=== PATIENT | male | born 1955 | race Caucasian/White ===

== ENCOUNTER 2018-09-25 10:47 | Emergency (ER) | payer MEDICARE ==
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
[2018-09-25 11:40] LABS: ABSOLUTE EOSINOPHILS # (AUTO) 0.1 10^3/uL (0.0-0.6); ABSOLUTE MONOCYTES (AUTO) 0.6 10^3/uL (0.1-1.4); ABSOLUTE NEUT (AUTO) 6.5 10^3/uL (1.7-8.2); BASOPHILS % (AUTO) 0.4 % (0-2); EOSINOPHILS % (AUTO) 0.7 % (0-6); HEMATOCRIT 49.8 % (37.9-51.0); HEMOGLOBIN 17.4 g/dL (13.5-17.0); LYMPHOCYTES % (AUTO) 21.9 % (13-45); MEAN CORPUSCULAR HEMOGLOBIN 31.7 pg (27.0-33.4); MEAN CORPUSCULAR HGB CONC 34.9 g/dL (32.0-36.0); MEAN CORPUSCULAR VOLUME 91 fl (80-97); MONOCYTES % (AUTO) 6.7 % (3-13); PLATELET COUNT 216 10^3/uL (150-450); RED BLOOD COUNT 5.49 10^6/uL (4.35-5.55); RED CELL DISTRIBUTION WIDTH 14.7 % (11.5-14.0); SEGMENTED NEUTROPHILS % (AUTO) 70.3 % (42-78); TOTAL CELLS COUNTED % (AUTO) 100 %; WHITE BLOOD COUNT 9.2 10^3/uL (4.0-10.5)
[2018-09-25 11:50] LABS: APPEARANCE,URINE CLEAR; BILIRUBIN,URINE NEGATIVE (NEGATIVE); COLOR,URINE YELLOW; GLUCOSE, URINE NEGATIVE (NEGATIVE); KETONES,URINE TRACE mg/dL (NEGATIVE); LEUKOCYTE ESTERASE,URINE NEGATIVE (NEGATIVE); NITRITE,URINE NEGATIVE (NEGATIVE); PROTEIN,URINE NEGATIVE (NEGATIVE); URINE SPECIFIC GRAVITY 1.008; UROBILINOGEN,URINE NEGATIVE mg/dL (<2.0)
[2018-09-25 12:02] LABS: URINE AMPHETAMINES SCREEN NEGATIVE; URINE BARBITURATES SCREEN NEGATIVE; URINE BENZODIAZEPINES SCREEN NEGATIVE; URINE COCAINE SCREEN NEGATIVE; URINE MARIJUANA (THC) SCREEN NEGATIVE; URINE METHADONE SCREEN NEGATIVE; URINE PHENCYCLIDINE SCREEN NEGATIVE
[2018-09-25 12:05] LABS: ALANINE AMINOTRANSFERASE 61 U/L (21-72); ALKALINE PHOSPHATASE 107 U/L (38-126); ANION GAP 11 (5-19); ASPARTATE AMINO TRANSFERASE 63 U/L (17-59); BILIRUBIN,DIRECT 0.4 mg/dL (0.0-0.4); BILIRUBIN,TOTAL 0.9 mg/dL (0.2-1.3); BLOOD UREA NITROGEN 10 mg/dL (7-20); CALCIUM 9.3 mg/dL (8.4-10.2); CARBON DIOXIDE 28 mmol/L (22-30); CHLORIDE 98 mmol/L (98-107); GLUCOSE 119 mg/dL (75-110); POTASSIUM 4.6 mmol/L (3.6-5.0); SODIUM 137.2 mmol/L (137-145); TOTAL PROTEIN 6.8 g/dL (6.3-8.2)
[2018-09-25 12:09] LABS: ACETAMINOPHEN < 10 ug/mL (10-30); ALCOHOL < 10 mg/dL (NONE DETECTED); SALICYLATE < 1.0 mg/dL (2.0-20.0)
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
[2018-09-25] MEDS ORDERED: BENZTROPINE MESYLATE 1 MG TABLET PO ONE (15:04)
[2018-09-25] MEDS: ASPIRIN 81 MG TABLET, CHEWABLE PO SCH (15:12)
--- NOTE | 2018-09-25 15:49 | EKG REPORT ---
SEVERITY:- ABNORMAL ECG - SINUS RHYTHM LEFT ATRIAL ABNORMALITY NONSPECIFIC INTRAVENTRICULAR CONDUCTION DELAY INFERIOR INFARCT, AGE INDETERMINATE : Confirmed by: Maria Guadalupe Lobo MD 25-Sep-2018 15:48:53
[2018-09-25] MEDS: OLANZAPINE 5 MG TABLET PO SCH (17:52)
[2018-09-25] MEDS: DIVALPROEX SODIUM 500 MG TAB.SR.24H PO SCH (17:52)
[2018-09-25] MEDS: BUSPIRONE HCL 10 MG TABLET PO SCH (17:52)
--- NOTE | 2018-09-25 19:02 | RADIOLOGY REPORT (SQ) ---
EXAM DESCRIPTION: VENOUS UNILATERAL LOWER COMPLETED DATE/TIME: 09/25/2018 6:20 pm REASON FOR STUDY: Swelling and pain right leg, donor site for CABG COMPARISON: None. TECHNIQUE: Dynamic and static colon scale and color images acquired of the right leg venous system. S elected spectral images acquired with additional compression and augmentation maneuvers. The contrala teral common femoral vein and saphenofemoral junction were also imaged. Images stored on PACS. LIMITATIONS: None. FINDINGS: COMMON FEMORAL: Normal phasicity, compression and augmentation. No visualized echogenic ma terial on colon scale. No defects on color images. FEMORAL: Normal compression and augmentation. No visualized echogenic material on colon scale. No defe cts on color images. POPLITEAL: Normal compression, augmentation. No visualized echogenic material on colon scale. No defec ts on color images. CALF VESSELS: Normal compression, augmentation. No visualized echogenic material on colon scale. No de fects on color images. GSV and SSV: The greater saphenous vein is surgically absent status post graft harvest. ANY DEEP VENOUS INSUFFICIENCY: Not evaluated. ANY EVIDENCE OF POPLITEAL CYST: No. OTHER: No other significant finding. CONTRALATERAL COMMON FEMORAL VEIN AND SAPHENOFEMORAL JUNCTION: Normal phasicity, compression and augmentation. No visualized echogenic material on colon scale. No de fects on color images. IMPRESSION: Negative ultrasound examination for deep venous thrombosis in the right lower extremity. TECHNICAL DOCUMENTATION: JOB ID: [id number] [employer]- All Rights Reserved Reading location - IP/workstation name: [email or web address]
--- NOTE | 2018-09-26 09:53 | ER Document Report ---
Doctor's Note Notes: Laboratory 09/25/18 09/25/18 09/25/18 11:26 11:26 11:26 WBC 9.2 RBC 5.49 Hgb 17.4 H Hct 49.8 MCV 91 MCH 31.7 MCHC 34.9 RDW 14.7 H Plt Count 216 Seg Neutrophils % 70.3 Lymphocytes % 21.9 Monocytes % 6.7 Eosinophils % 0.7 Basophils % 0.4 Absolute Neutrophils 6.5 Absolute Lymphocytes 2.0 Absolute Monocytes 0.6 Absolute Eosinophils 0.1 Absolute Basophils 0.0 Sodium 137.2 Potassium 4.6 Chloride 98 Carbon Dioxide 28 Anion Gap 11 BUN 10 Creatinine 1.01 Est GFR ( Amer) > 60 Est GFR (Non-Af Amer) > 60 Glucose 119 H Calcium 9.3 Total Bilirubin 0.9 Direct Bilirubin 0.4 Neonat Total Bilirubin Not Reportable Neonat Direct Bilirubin Not Reportable Neonat Indirect Bili Not Reportable AST 63 H ALT 61 Alkaline Phosphatase 107 Total Protein 6.8 Albumin 4.0 Urine Color YELLOW Urine Appearance CLEAR Urine pH 6.0 Ur Specific [place] 1.008 Urine Protein NEGATIVE Urine Glucose (UA) NEGATIVE Urine Ketones TRACE H Urine Blood NEGATIVE Urine Nitrite NEGATIVE Urine Bilirubin NEGATIVE Urine Urobilinogen NEGATIVE Ur Leukocyte Esterase NEGATIVE Urine WBC (Auto) 2 Urine RBC (Auto) 0 Urine Bacteria (Auto) TRACE Urine Mucus (Auto) RARE Urine Ascorbic Acid NEGATIVE Salicylates < 1.0 L Urine Opiates Screen Urine Methadone Screen Acetaminophen < 10 L Ur Barbiturates Screen Ur Phencyclidine Scrn Ur Amphetamines Screen U Benzodiazepines Scrn Urine Cocaine Screen U Marijuana (THC) Screen Serum Alcohol < 10 09/25/18 11:26 WBC RBC Hgb Hct MCV MCH MCHC RDW Plt Count Seg Neutrophils % Lymphocytes % Monocytes % Eosinophils % Basophils % Absolute Neutrophils Absolute Lymphocytes Absolute Monocytes Absolute Eosinophils Absolute Basophils Sodium Potassium Chloride Carbon Dioxide Anion Gap BUN Creatinine Est GFR ( Amer) Est GFR (Non-Af Amer) Glucose Calcium Total Bilirubin Direct Bilirubin Neonat Total Bilirubin Neonat Direct Bilirubin Neonat Indirect Bili AST ALT Alkaline Phosphatase Total Protein Albumin Urine Color Urine Appearance Urine pH Ur Specific [place] Urine Protein Urine Glucose (UA) Urine Ketones Urine Blood Urine Nitrite Urine Bilirubin Urine Urobilinogen Ur Leukocyte Esterase Urine WBC (Auto) Urine RBC (Auto) Urine Bacteria (Auto) Urine Mucus (Auto) Urine Ascorbic Acid Salicylates Urine Opiates Screen NEGATIVE Urine Methadone Screen NEGATIVE Acetaminophen Ur Barbiturates Screen NEGATIVE Ur Phencyclidine Scrn NEGATIVE Ur Amphetamines Screen NEGATIVE U Benzodiazepines Scrn NEGATIVE Urine Cocaine Screen NEGATIVE U Marijuana (THC) Screen NEGATIVE Serum Alcohol 09/26/18 09:52 62-year-old male brought in and IVC paperwork for aggressive behavior. As the rounding physician this AM, I assessed the patient's labs, vitals, and records. No concerning findings this morning. Patient denies any acute complaints. Patient is cleared for disposition by psychiatry. At this time we are awaiting placement to a psychiatric facility. PHYSICAL EXAMINATION: GENERAL: Well-appearing, well-nourished and in no acute distress. HEAD: Atraumatic, normocephalic. EYES: Pupils equal round extraocular movements intact, conjunctiva are normal. ENT: Nares patent NECK: Normal range of motion LUNGS: No respiratory distress Musculoskeletal: Normal range of motion NEUROLOGICAL: Normal speech, normal gait. PSYCH: Normal mood, normal affect. SKIN: Warm, Dry, normal turgor, no rashes or lesions noted.
[2018-09-26] MEDS: ASPIRIN 81 MG TABLET, CHEWABLE PO SCH (10:44)
[2018-09-26] MEDS: BUSPIRONE HCL 10 MG TABLET PO SCH ×2 (10:44→18:55)
[2018-09-26] MEDS: DIVALPROEX SODIUM 500 MG TAB.SR.24H PO SCH ×2 (10:44→18:55)
[2018-09-26] MEDS: OLANZAPINE 5 MG TABLET PO SCH ×2 (10:44→18:55)
--- NOTE | 2018-09-26 12:46 | PSYCHOLOGICAL NOTE ---
Psych Note - Psych Note Date seen by psych provider: 09/26/18 Time seen by psych provider: 12:00 Psych Note: Reason for Consult: IVC Consent permissions: jaden Palm to be daughter in law, Patient is here under IVC papers due to aggressive behavior and hostile actions. Check in conduct with patient Patient presents irritable and states he has no interest in talking to clinician. 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 Patient appears to be confusing IVC to being under arrest; however, clinician id unable to clarify the situation because he is refusing to allow clinician to talk to him. Patient was noted to have a good evening and had no difficulties. Patient requests his soon-to-be [id number], Arpita, to be contacted to come and sit with him. Clinician contacted [id number] Arpita who reports she will be there as soon as possible. Medication recommendations per [facility]'s contracted Dr. Neno BENITES are as follows Depakote 500 mg twice daily BuSpar 10 mg twice daily Zyprexa 5 mg twice daily Cogentin 1 mg daily 309.81 (F43.10) posttraumatic stress disorder Impression/plan:Patient is recommended to continue under IVC. Patient has labile mood with tearful affect. Patient reports frequent flashbacks; the last one being just last night. He thought he was still on duty in [facility]; this resulted in the patient becoming aggressive with family. He confirms he has never been aggressive before. Medication recommendations have been provided. Patient will be re-evaluated. Dr. Harrison was consulted on the care and management of this patient; attending physician is in agreement with recommendations and disposition.
[2018-09-26] MEDS ORDERED: BENZTROPINE MESYLATE INJ 2 MG/2 ML AMPULE IM SCH (15:30)
[2018-09-27] MEDS ORDERED: ACETAMINOPHEN 325 MG TABLET PO ONE (02:47)
--- NOTE | 2018-09-27 07:55 | ER Document Report ---
Doctor's Note Notes: 09/27/18 07:55 Patient has been accepted at [facility]. Law enforcement will be here shortly to transport him. At this time he is medically stable for transport.
[2018-09-27 08:58] VITALS: BP 166/79
--- NOTE | 2018-09-27 11:39 | PSYCHOLOGICAL NOTE ---
Psych Note - Psych Note Date seen by psych provider: 09/27/18 Time seen by psych provider: 08:00 Psych Note: Reason for Consult: IVC Consent permissions: jaden Palm to be daughter in law, Patient is here under IVC papers due to aggressive behavior and hostile actions. Check in conduct with patient Patient was accepted to [facility] and transportation was set up for this morning. Clinician explained placement has been found to [facility] to patient. He reports his understanding and received [facility] brochures. Patient states he has no further concerns. Clinician notes patient never makes eye contact. Medication recommendations per [facility]'s contracted Dr. Neno BENITES are as follows Depakote 500 mg twice daily BuSpar 10 mg twice daily Zyprexa 5 mg twice daily Cogentin 1 mg daily 309.81 (F43.10) posttraumatic stress disorder Impression/plan:Patient is recommended to continue under IVC. Patient was accepted to [facility]; transportation was set up for this morning. Patient reports no further concerns at this time. Dr. Harrison was consulted on the care and management of this patient; attending physician is in agreement with recommendations and disposition.
== END 2018-09-27 08:58 ==
LOC: ER 10:47
DX: F99 Mental disorder, not otherwise specified (principal); F43.10 Post-traumatic stress disorder, unspecified; F17.200 Nicotine dependence, unspecified, uncomplicated; I25.2 Old myocardial infarction; Z90.49 Acquired absence of other specified parts of digestive tract; Z95.1 Presence of aortocoronary bypass graft
CPT/HCPCS: 93005; 99285; 96372; 36415; 80307 ×4; 85025; 80053; 81001; 93971; 93010; A9270 ×9; J0515

== ENCOUNTER 2018-10-18 15:50 | Emergency (ER) | payer OTHER, MEDICARE ==
[2018-10-18 17:09] LABS: ABSOLUTE BASOPHILS # (AUTO) 0.1 10^3/uL (0.0-0.2); ABSOLUTE EOSINOPHILS # (AUTO) 0.1 10^3/uL (0.0-0.6); ABSOLUTE LYMPHOCYTES (AUTO) 2.3 10^3/uL (0.5-4.7); ABSOLUTE MONOCYTES (AUTO) 0.6 10^3/uL (0.1-1.4); ABSOLUTE NEUT (AUTO) 5.1 10^3/uL (1.7-8.2); BASOPHILS % (AUTO) 0.6 % (0-2); EOSINOPHILS % (AUTO) 1.7 % (0-6); HEMATOCRIT 43.9 % (37.9-51.0); HEMOGLOBIN 15.2 g/dL (13.5-17.0); LYMPHOCYTES % (AUTO) 28.3 % (13-45); MEAN CORPUSCULAR HEMOGLOBIN 31.2 pg (27.0-33.4); MEAN CORPUSCULAR HGB CONC 34.6 g/dL (32.0-36.0); MEAN CORPUSCULAR VOLUME 90 fl (80-97); MONOCYTES % (AUTO) 7.5 % (3-13); PLATELET COUNT 226 10^3/uL (150-450); RED BLOOD COUNT 4.88 10^6/uL (4.35-5.55); RED CELL DISTRIBUTION WIDTH 14.4 % (11.5-14.0); SEGMENTED NEUTROPHILS % (AUTO) 61.9 % (42-78); TOTAL CELLS COUNTED % (AUTO) 100 %; WHITE BLOOD COUNT 8.3 10^3/uL (4.0-10.5)
[2018-10-18 17:16] LABS: APPEARANCE,URINE CLEAR; BILIRUBIN,URINE NEGATIVE (NEGATIVE); COLOR,URINE COLORLESS; GLUCOSE, URINE NEGATIVE (NEGATIVE); KETONES,URINE NEGATIVE (NEGATIVE); LEUKOCYTE ESTERASE,URINE NEGATIVE (NEGATIVE); NITRITE,URINE NEGATIVE (NEGATIVE); PROTEIN,URINE NEGATIVE (NEGATIVE); URINE SPECIFIC GRAVITY 1.002; UROBILINOGEN,URINE NEGATIVE mg/dL (<2.0)
[2018-10-18 17:23] LABS: ALBUMIN 3.7 g/dL (3.5-5.0); ANION GAP 11 (5-19); BLOOD UREA NITROGEN 9 mg/dL (7-20); CARBON DIOXIDE 28 mmol/L (22-30); CHLORIDE 98 mmol/L (98-107); GLUCOSE 106 mg/dL (75-110); POTASSIUM 4.3 mmol/L (3.6-5.0); SODIUM 136.8 mmol/L (137-145); TOTAL PROTEIN 6.2 g/dL (6.3-8.2)
[2018-10-18 17:26] LABS: ALANINE AMINOTRANSFERASE 33 U/L (21-72); ALKALINE PHOSPHATASE 92 U/L (38-126); ASPARTATE AMINO TRANSFERASE 33 U/L (17-59); BILIRUBIN,DIRECT 0.2 mg/dL (0.0-0.4); BILIRUBIN,TOTAL 0.4 mg/dL (0.2-1.3); CALCIUM 9.2 mg/dL (8.4-10.2)
[2018-10-18 17:29] LABS: ACETAMINOPHEN < 10 ug/mL (10-30); ALCOHOL < 10 mg/dL (NONE DETECTED); SALICYLATE < 1.0 mg/dL (2.0-20.0)
[2018-10-18 17:39] LABS: URINE AMPHETAMINES SCREEN NEGATIVE; URINE BARBITURATES SCREEN NEGATIVE; URINE BENZODIAZEPINES SCREEN NEGATIVE; URINE COCAINE SCREEN NEGATIVE; URINE MARIJUANA (THC) SCREEN NEGATIVE; URINE METHADONE SCREEN NEGATIVE; URINE PHENCYCLIDINE SCREEN NEGATIVE
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
[2018-10-18] MEDS ORDERED: BENZTROPINE MESYLATE 1 MG TABLET PO ONE (19:59)
[2018-10-18] MEDS ORDERED: OLANZAPINE 5 MG TABLET PO ONE (19:59)
[2018-10-18] MEDS ORDERED: BUSPIRONE HCL 10 MG TABLET PO ONE (20:00)
[2018-10-18] MEDS ORDERED: DIVALPROEX SODIUM 500 MG TAB.SR.24H PO ONE (20:00)
--- NOTE | 2018-10-18 20:20 | RADIOLOGY REPORT (SQ) ---
EXAM DESCRIPTION: CHEST 2 VIEWS COMPLETED DATE/TIME: 10/18/2018 8:02 pm REASON FOR STUDY: COUGH COMPARISON: Chest films 02/15/2013 EXAM PARAMETERS: NUMBER OF VIEWS: two views TECHNIQUE: Digital Frontal and Lateral radiographic views of the chest acquired. RADIATION DOSE: NA LIMITATIONS: none FINDINGS: LUNGS AND PLEURA: No opacities, masses or pneumothorax. No pleural effusion. MEDIASTINUM AND HILAR STRUCTURES: No masses or contour abnormalities. HEART AND VASCULAR STRUCTURES: No cardiomegaly. Old sternotomy for CABG BONES: No acute findings. HARDWARE: Left-sided dual lead pacemaker OTHER: No other significant finding. IMPRESSION: NO ACUTE RADIOGRAPHIC FINDING IN THE CHEST. TECHNICAL DOCUMENTATION: JOB ID: [id number] [employer]- All Rights Reserved Reading location - IP/workstation name: [email or web address]
--- NOTE | 2018-10-18 21:29 | EKG REPORT ---
SEVERITY:- ABNORMAL ECG - SINUS RHYTHM PROBABLE LEFT ATRIAL ABNORMALITY NONSPECIFIC INTRAVENTRICULAR CONDUCTION DELAY INFERIOR INFARCT, OLD : Confirmed by: Maria Guadalupe Lobo MD 18-Oct-2018 21:29:11
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
[2018-10-19] MEDS ORDERED: BENZTROPINE MESYLATE 1 MG TABLET PO SCH (10:00)
--- NOTE | 2018-10-19 10:45 | RADIOLOGY REPORT (SQ) ---
EXAM DESCRIPTION: CT HEAD WITHOUT COMPLETED DATE/TIME: 10/19/2018 10:31 am REASON FOR STUDY: 48, change in mental status COMPARISON: None. TECHNIQUE: Axial images acquired through the brain without intravenous contrast. Images reviewed wi th bone, brain and subdural windows. Additional sagittal and coronal reconstructions were generated. Images stored on PACS. All CT scanners at this facility use dose modulation, iterative reconstruction, and/or weight based d osing when appropriate to reduce radiation dose to as low as reasonably achievable (ALARA). [facility]: Dose Right [facility]: CareDose [facility]: Dose Right [facility]: Teradose 4D [facility]: Smart iHealthHome RADIATION DOSE: CT Rad equipment meets quality standard of care and radiation dose reduction techniq ues were employed. CTDIvol: 53.2 mGy. DLP: 1070 mGy-cm. mGy. LIMITATIONS: None. FINDINGS: VENTRICLES: Normal size and contour. CEREBRUM: No masses. No hemorrhage. No midline shift. No evidence for acute infarction. Normal gra y/white matter differentiation. No areas of low density in the white matter. CEREBELLUM: No masses. No hemorrhage. No alteration of density. No evidence for acute infarction. EXTRAAXIAL SPACES: No fluid collections. No masses. ORBITS AND GLOBE: No intra- or extraconal masses. Normal contour of globe without masses. CALVARIUM: No fracture. PARANASAL SINUSES: No fluid or mucosal thickening. SOFT TISSUES: No mass or hematoma. OTHER: No other significant finding. IMPRESSION: No acute intracranial pathology. EVIDENCE OF ACUTE STROKE: NO. COMMENT: Quality ID # [id number]: Final reports with documentation of one or more dose reduction techniques (e.g., Automated exposure control, adjustment of the mA and/or kV according to patient size, use of iterative reconstruction technique) TECHNICAL DOCUMENTATION: JOB ID: [id number] [employer]- All Rights Reserved Reading location - IP/workstation name: [email or web address]
[2018-10-19] MEDS: OLANZAPINE 5 MG TABLET PO SCH ×2 (10:54→17:33)
[2018-10-19] MEDS: BUSPIRONE HCL 10 MG TABLET PO SCH ×2 (10:54→17:32)
[2018-10-19] MEDS: DIVALPROEX SODIUM 500 MG TAB.SR.24H PO SCH ×2 (10:54→17:32)
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
[2018-10-20] MEDS ORDERED: ACETAMINOPHEN 325 MG TABLET PO ONE (01:39)
[2018-10-20 09:23] VITALS: BP 125/68
--- NOTE | 2018-10-20 09:30 | ER Document Report ---
Doctor's Note Notes: 10/20/18 09:29 62-year-old male who [facility]. Vital signs are stable. Labs previously as recorded. CT scan of the head yesterday showed no acute infarcts. Patient still has no focal neurological deficits.
[2018-10-20] MEDS: BUSPIRONE HCL 10 MG TABLET PO SCH (09:37)
[2018-10-20] MEDS: OLANZAPINE 5 MG TABLET PO SCH (09:37)
[2018-10-20] MEDS: DIVALPROEX SODIUM 500 MG TAB.SR.24H PO SCH (09:37)
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
== END 2018-10-20 11:07 ==
LOC: ER 15:50
DX: F43.10 Post-traumatic stress disorder, unspecified (principal); R45.6 Violent behavior; I25.2 Old myocardial infarction; Z95.1 Presence of aortocoronary bypass graft; Z88.8 Allergy status to other drugs, medicaments and biological substances; F17.210 Nicotine dependence, cigarettes, uncomplicated; Z79.899 Other long term (current) drug therapy; Z79.82 Long term (current) use of aspirin
CPT/HCPCS: 36415; 71046; 80053; 80307; 81001; 85025; 93005; 93010; 99285

== ENCOUNTER 2020-01-12 00:10 | Inpatient (IN) | payer OTHER, MEDICARE ==
[2020-01-12 00:53] LABS: ALBUMIN 3.6 g/dL (3.5-5.0); ALKALINE PHOSPHATASE 154 U/L (38-126); ANION GAP 10 (5-19); ASPARTATE AMINO TRANSFERASE 28 U/L (17-59); BILIRUBIN,DIRECT 0.2 mg/dL (0.0-0.4); BILIRUBIN,TOTAL 0.9 mg/dL (0.2-1.3); BLOOD UREA NITROGEN 19 mg/dL (7-20); CARBON DIOXIDE 23 mmol/L (22-30); CHLORIDE 100 mmol/L (98-107); GLUCOSE 134 mg/dL (75-110); POTASSIUM 5.2 mmol/L (3.6-5.0); TOTAL PROTEIN 6.8 g/dL (6.3-8.2)
[2020-01-12 00:59] LABS: ABSOLUTE LYMPHOCYTES (AUTO) 1.9 10^3/uL (0.5-4.7); ABSOLUTE MONOCYTES (AUTO) 0.6 10^3/uL (0.1-1.4); ABSOLUTE NEUT (AUTO) 9.1 10^3/uL (1.7-8.2); BASOPHILS % (AUTO) 0.3 % (0-2); EOSINOPHILS % (AUTO) 0.4 % (0-6); HEMATOCRIT 45.6 % (37.9-51.0); HEMOGLOBIN 15.4 g/dL (13.5-17.0); LYMPHOCYTES % (AUTO) 16.5 % (13-45); MEAN CORPUSCULAR HEMOGLOBIN 31.3 pg (27.0-33.4); MEAN CORPUSCULAR HGB CONC 33.8 g/dL (32.0-36.0); MEAN CORPUSCULAR VOLUME 93 fl (80-97); MONOCYTES % (AUTO) 4.9 % (3-13); PLATELET COUNT 166 10^3/uL (150-450); RED BLOOD COUNT 4.92 10^6/uL (4.35-5.55); RED CELL DISTRIBUTION WIDTH 16.2 % (11.5-14.0); SEGMENTED NEUTROPHILS % (AUTO) 77.9 % (42-78); TOTAL CELLS COUNTED % (AUTO) 100 %; WHITE BLOOD COUNT 11.6 10^3/uL (4.0-10.5)
--- NOTE | 2020-01-12 01:06 | RADIOLOGY REPORT (SQ) ---
EXAM DESCRIPTION: XR CHEST 1 VIEW COMPLETED DATE/TME: 01/12/2020 00:28 CLINICAL HISTORY: 64 years, Male, sob COMPARISON: 10/18/2018 chest NUMBER OF VIEWS: 1 TECHNIQUE: Portable chest LIMITATIONS: None. FINDINGS: Cardiomegaly. Median sternotomy wires. Left-sided pacing device. Chronic appearing interstitial changes. No confluent airspace opacity. No pneumothorax IMPRESSION: Cardiomegaly. No acute cardiopulmonary process copyright 2010 [employer]- All Rights Reserved
--- NOTE | 2020-01-12 01:29 | ER Document Report ---
ED General <MIR AMARO IV - Last Filed: 01/12/20 06:49> - General TRAVEL OUTSIDE OF THE [place] IN LAST 30 DAYS: No <LEXUS KHANNA - Last Filed: 01/15/20 15:10> - General Chief Complaint: Respiratory Distress Stated Complaint: SHORTNESS OF BREATH Time Seen by Provider: 01/12/20 00:54 - HPI Notes: Chief complaint: Shortness of breath and difficulty with urination Mr. Manrique is a 64-year-old male with a history of coronary disease status po st CABG and subsequent placement of a pacemaker defibrillator. He underwent an ablation procedure at [facility] on December 17 of this year. Over the past several days he has had difficulty emptying his bladder and tonight became very short of breath and tachycardic. No chest pain. Slight dry cough. No sputum production. No nausea vomiting. No fever chills reported. Denies back pain. (LEXUS KHANNA) - Related Data Allergies/Adverse Reactions: haloperidol [From Haldol] Allergy (Verified 10/18/18 15:56) adhesive tape Adverse Reaction (Verified 10/18/18 15:56) Past Medical History - General Information source: Patient, Relative - Social History Smoking Status: Former Smoker Chew tobacco use (# tins/day): No Frequency of alcohol use: None Drug Abuse: None Lives with: Family Family History: Reviewed & Not Pertinent Patient has suicidal ideation: No Patient has homicidal ideation: No - Past Medical History Cardiac Medical History: Reports: Hx Heart Attack - x 8 Endocrine Medical History: Denies: Hx Diabetes Mellitus Type 1, Hx Diabetes Mellitus Type 2 Renal/ Medical History: Denies: Hx Peritoneal Dialysis Psychiatric Medical History: Reports: Hx Schizophrenia Past Surgical History: Reports: Hx Cardiac Catheterization - bipass x4, Hx Cholecystectomy - PACEMAKER/DEFIB, Other - Defibrillator/pacemaker. <LEXUS KHANNA - Last Filed: 01/15/20 15:10> Review of Systems <LEXUS KHANNA - Last Filed: 01/15/20 15:10> - Review of Systems Notes: Constitutional: Negative for fever. HENT: Negative for sore throat. Eyes: Negative for visual changes. Cardiovascular: Negative for chest pain. Respiratory: As per HPI. Gastrointestinal: Negative for abdominal pain, vomiting or diarrhea. Genitourinary: As per HPI. Musculoskeletal: Negative for back pain. Skin: Negative for rash. Neurological: Negative for headaches, weakness or numbness. 10 point ROS negative except as marked above and in HPI. (LEXUS KHANNA) Physical Exam <LEXUS KHANNA - Last Filed: 01/15/20 15:10> - Vital signs Vitals: Pulse Ox 96 01/12/20 00:10 - Notes Notes: GENERAL: Male patient appearing somewhat older than stated age who is dyspneic. SKIN: Moist and warm. Good turgor no rashes. HEAD: Normocephalic atraumatic. EYES: PERRLA. EOMI. Conjunctivae and sclerae clear. EARS: CANALS AND TMS CLEAR. NOSE: CLEAR. MOUTH: Moist mucosa. Good dentition. No stridor or edema. No drooling. NECK: Supple. No masses or thyromegaly. No adenopathy. Carotids 2+ without bruits. No JVD. BACK: Symmetrical without tenderness. CHEST: Pacemaker/defibrillator over left anterior chest wall. Healed CABG scar present. Mildly tachypneic. Breath sounds clear and symmetrical. HEART: Tachycardic regular rhythm. No murmur gallop or rub. ABDOMEN: Mildly obese. Soft nontender without masses, organomegaly or rebound. Bowel sounds normally active. No bruits. GENITALIA: Deferred. EXTREMITIES: Bilateral trace pretibial edema. No calf tenderness. Cap refill less than 1.5 seconds. Dorsalis pedis and posterior tibial pulses 3+ and symmetrical. NEUROLOGICAL: GCS 15. Alert and oriented x3. Fluent speech. Cranial nerves II through XII intact. Sensorimotor and cerebellar normal. Normal tone. PSYCHIATRIC: Appropriate affect. (LEXUS KHANNA) Course - Laboratory Result Diagrams: 01/12/20 00:15 01/12/20 00:15 - Consults dr. riggs Time consulted: 06:49 - [facility] <MIR AMARO IV - Last Filed: 01/12/20 06:49> - Laboratory Result Diagrams: 01/12/20 00:15 01/12/20 00:15 <LEXUS KHANNA - Last Filed: 01/15/20 15:10> - Re-evaluation Re-evalutation: 01/12/20 06:49 Results discussed with patient. Patient accepted recommendation for admission. (MIR AMARO IV) 01/12/20 03:17 This man has a dirty urine which will be cultured. We have started him on IV Rocephin. Blood cultures pending. His lactate is 1.3. His blood pressures on the low side around 110 systolic. He was quite dyspneic when he came in. His venous blood gas is pending. His chest x-ray did not show any focal infiltrate. He has an elevated BNP and will have limited tolerance for IV fluids. He was also mildly hypoxemic when he arrived and he is oxygenating well at present on 2 L nasal O2. His d-dimer is elevated and he has had a recent surgical procedure for this reason we will also order a CTA of the chest to rule out pulmonary embolus. 01/12/20 03:19 Further care of the patient is turned over to Dr. Amaro at this time with final disposition pending. (LEXUS KHANNA) - Vital Signs Vital signs: Temp Pulse Resp BP Pulse Ox 98.5 F 20 113/65 96 01/12/20 13:40 01/12/20 13:40 01/12/20 13:40 01/12/20 13:40 - Laboratory Laboratory results interpreted by me: 01/12/20 01/12/20 01/12/20 00:15 00:15 00:15 WBC 11.6 H RDW 16.2 H Absolute Neuts (auto) 9.1 H D-Dimer VBG pH VBG pCO2 VBG HCO3 Sodium 133.0 L Potassium 5.2 H Creatinine 1.50 H Est GFR ( Amer) 57 L Est GFR (MDRD) Non-Af 47 L Glucose 134 H Alkaline Phosphatase 154 H NT-Pro-B Natriuret Pep 5400 H Urine Protein Urine Blood Ur Leukocyte Esterase 01/12/20 01/12/20 01/12/20 00:15 01:05 03:10 WBC RDW Absolute Neuts (auto) D-Dimer 1.20 H VBG pH 7.45 H VBG pCO2 26.9 L VBG HCO3 18.2 L Sodium Potassium Creatinine Est GFR ( Amer) Est GFR (MDRD) Non-Af Glucose Alkaline Phosphatase NT-Pro-B Natriuret Pep Urine Protein 100 H Urine Blood SMALL H Ur Leukocyte Esterase LARGE H - Consults dr. riggs Reason for consultation: 01/12/20 06:50 uti, hypotension, renal insufficiency, generalized weakness (MIR AMARO IV) Discharge <MIR AMARO IV - Last Filed: 01/12/20 06:49> <ELXUS KHANNA - Last Filed: 01/15/20 15:10> - Discharge Clinical Impression: UTI (urinary tract infection) Qualifiers: Urinary tract infection type: site unspecified Hematuria presence: without hematuria Qualified Code(s): N39.0 - Urinary tract infection, site not specified Condition: Good Disposition: [place]
[2020-01-12 01:59] LABS: APPEARANCE,URINE CLOUDY; BILIRUBIN,URINE NEGATIVE (NEGATIVE); GLUCOSE, URINE NEGATIVE (NEGATIVE); KETONES,URINE NEGATIVE (NEGATIVE); LEUKOCYTE ESTERASE,URINE LARGE (NEGATIVE); NITRITE,URINE NEGATIVE (NEGATIVE); PROTEIN,URINE 100 mg/dL (NEGATIVE); URINE SPECIFIC GRAVITY 1.015; UROBILINOGEN,URINE NEGATIVE mg/dL (<2.0)
[2020-01-12 03:05] LABS: COLOR,URINE DARK YELLOW
[2020-01-12] MEDS ORDERED: CEFTRIAXONE INJ 1000 MG VIAL IV ONE (03:14)
[2020-01-12 03:34] LABS: VENOUS BLOOD BASE EXCESS -4.3 mmol/L; VENOUS BLOOD HCO3 18.2 mmol/L (20-32); VENOUS BLOOD PCO2 26.9 mmHg (35-63); VENOUS BLOOD PH 7.45 (7.30-7.42)
--- NOTE | 2020-01-12 05:58 | RADIOLOGY REPORT (SQ) ---
EXAM DESCRIPTION: CT CHEST ANGIOGRAPHY WITHOUT THEN WITH IV CONTRAST COMPLETED DATE/TME: 01/12/2020 01:53 CLINICAL HISTORY: Dyspnea, tachycardia COMPARISON: 10/18/2018 TECHNIQUE: CTA of the chest obtained following the uncomplicated intravenous administration of . 3-D/MIP reformatted images of the chest available for evaluation. FINDINGS: Chest: Pulmonary arteries: Contrast bolus is adequate.No filling defects identified in the pulmonary arteries to suggest pulmonary embolus. Thyroid:No abnormalities of the visualized thyroid. Great Vessels:Great vessels have normal anatomic configuration. Thoracic Aorta: Atherosclerotic calcification of the thoracic aorta. Heart: Coronary artery atherosclerosis. Cardiomegaly or significant pericardial effusion. Left-sided pacemaker. Prior median sternotomy. Progressive separation of the sternum measuring approximately 1.9 cm with increased number of sternotomy wire fractures. No definite soft tissue abnormalities of the sternotomy. Reflux of contrast into the hepatic veins. Lymph Nodes: Multiple enlarged paratracheal lymph nodes. Esophagus:No abnormalities of the esophagus identified. Other:No additional findings. Lungs: Mild bibasilar compressive atelectasis. Right subpleural lymph node. Minimal peripheral interstitial opacities. Pleura: Small bilateral pleural effusions. Trachea/Airways: No acute abnormality of the trachea. Bones: Degenerative change of the spine. The Upper Abdomen:Limited images of the upper abdomen demonstrate no definite abnormalities of visualized portions of the liver, spleen, adrenal glands, or kidneys. Coarse pancreatic calcifications may indicate chronic pancreatitis. Prior cholecystectomy. IMPRESSION: 1. No pulmonary embolus. 2. Cardiomegaly with coronary artery atherosclerosis. Minimal interstitial opacities and reflux of contrast into the hepatic veins. These findings could be seen with right heart dysfunction and mild interstitial pulmonary edema. 3. Small bilateral pleural effusions and bibasilar compressive atelectasis. 4. Prior median sternotomy with mild separation of the sternotomy fragments measuring 1.9 cm with increased number of sternotomy wire fractures. No definite soft tissue abnormalities along the median sternotomy. 5. Findings suggest chronic pancreatitis. 6. Mild mediastinal lymphadenopathy. This may be reactive or congestive. If the patient has history of neoplasm alexei metastatic disease could produce a similar appearance. This exam was performed according to our departmental dose-optimization program, which includes automated exposure control, adjustment of the mA and/or kV according to patient size and/or use of iterative reconstruction technique.
[2020-01-12] MEDS ORDERED: IPRATROPIUM/ALBUTEROL 0.5-2.5 MG/3 ML AMPUL NEB PRN (08:18)
[2020-01-12] MEDS ORDERED: OXYCODONE-ACETAMINOPHEN 5-325 MG TABLET PO PRN (08:18)
[2020-01-12] MEDS ORDERED: ONDANSETRON 4 MG TAB.RAPDIS PO PRN (08:18)
[2020-01-12] MEDS ORDERED: ACETAMINOPHEN 325 MG TABLET PO PRN (08:18)
--- NOTE | 2020-01-12 08:35 | PDOC H&P ---
History of Present Illness Admission Date/PCP: LILIA JOSEPH MD Patient complains of: Patient presents emergency room with complaints of difficulty breathing, dizziness, and difficulty with his urination. He became short of breath and so came to the ER for further evaluation. History of Present Illness: KYUNG VASQUEZ SR is a 64 year old male In the ER patient was found to be tachycardic, tachypneic as well as hypotensive but denies any chest pain. Further evaluation reveals a urinary tract infection. Patient denies any chest pain. He does have a significant cardiac history including coronary artery disease and a recent ablation procedure at [facility] on December 17 of this year. He says he is scheduled for another ablation at the end of this month. He has a pacemaker as well as defibrillator. CT scan of the chest done reveals cardiomegaly with coronary artery atherosclerosis Past Medical History Cardiac Medical History: Reports: Congestive Heart Failure, Coronary Artery Disease, Myocardial Infarction - x 8 Endocrine Medical History: Denies: Diabetes Mellitus Type 1, Diabetes Mellitus Type 2 Past Surgical History Past Surgical History: Reports: Cardiac Catheterization - bipass x4, Cholecystectomy - PACEMAKER/DEFIB, Other - Defibrillator/pacemaker. Social History Information Source: Patient Lives with: Family Smoking Status: Former Smoker Electronic Cigarette use?: No Frequency of Alcohol Use: Social Hx Recreational Drug Use: No - Advance Directive Resuscitation Status: Full Code Family History Family History: Reviewed & Not Pertinent Parental Family History Reviewed: No Children Family History Reviewed: Yes Sibling(s) Family History Reviewed.: Yes Medication/Allergy Home Medications: Aspirin [Ecotrin] 81 mg PO DAILY 09/25/18 Aripiprazole [Abilify] 5 mg PO DAILY 10/18/18 Furosemide [Lasix] 5 mg PO DAILY 10/18/18 Indomethacin [Indocin 25 mg Capsule] 25 mg PO PRN PRN 10/18/18 Melatonin [Melatonin 3 mg Tablet] 3 mg PO QHS 10/18/18 Tadalafil [Cialis] 10 mg PO DAILY 10/18/18 Allergies/Adverse Reactions: haloperidol [From Haldol] Allergy (Verified 10/18/18 15:56) adhesive tape Adverse Reaction (Verified 10/18/18 15:56) Review of Systems All systems: reviewed and no additional remarkable complaints except as stated Cardiovascular: PRESENT: dyspnea on exertion, orthropnea. ABSENT: chest pain, edema, palpitations Respiratory: PRESENT: dyspnea. ABSENT: cough, hemoptysis Genitourinary: PRESENT: difficulty urinating, dysuria. ABSENT: hematuria Musculoskeletal: ABSENT: back pain Neurological: PRESENT: dizziness Physical Exam Vital Signs: Temp Pulse Resp BP Pulse Ox 97.8 F 24 H 115/84 97 01/12/20 07:23 01/12/20 07:00 01/12/20 07:01 01/12/20 07:01 Intake & Output 01/11/20 01/12/20 01/13/20 05:59 06:59 06:59 Output Total 400 Balance -400 Weight General appearance: PRESENT: no acute distress, obese, well-nourished Head exam: PRESENT: atraumatic, normocephalic Eye exam: PRESENT: conjunctiva pink, PERRLA. ABSENT: scleral icterus Mouth exam: PRESENT: moist, tongue midline Neck exam: ABSENT: carotid bruit, JVD, lymphadenopathy, thyromegaly Respiratory exam: PRESENT: clear to auscultation reymundo, tachypnea, unlabored. ABSENT: rales, rhonchi, wheezes Cardiovascular exam: PRESENT: +S1, +S2, tachycardia. ABSENT: diastolic murmur, rubs, systolic murmur Pulses: PRESENT: normal dorsalis pedis pul Vascular exam: PRESENT: normal capillary refill GI/Abdominal exam: PRESENT: normal bowel sounds, soft. ABSENT: distended, guarding, mass, organolmegaly, rebound, tenderness Rectal exam: PRESENT: deferred Extremities exam: PRESENT: full ROM. ABSENT: calf tenderness, clubbing, pedal edema Neurological exam: PRESENT: alert, awake, oriented to person, oriented to place, oriented to time, oriented to situation, CN II-XII grossly intact. ABSENT: motor sensory deficit Psychiatric exam: PRESENT: appropriate affect, normal mood. ABSENT: homicidal ideation, suicidal ideation Skin exam: PRESENT: dry, intact, warm. ABSENT: cyanosis, rash Results Laboratory Results: 01/12/20 00:15 01/12/20 00:15 01/12/20 01/12/20 01/12/20 00:15 00:15 00:15 WBC 11.6 H RBC 4.92 Hgb 15.4 Hct 45.6 MCV 93 MCH 31.3 MCHC 33.8 RDW 16.2 H Plt Count 166 Seg Neutrophils % 77.9 VBG pH VBG pCO2 VBG HCO3 VBG Base Excess Sodium 133.0 L Potassium 5.2 H Chloride 100 Carbon Dioxide 23 Anion Gap 10 BUN 19 Creatinine 1.50 H Est GFR ( Amer) 57 L Glucose 134 H Lactic Acid 1.4 Calcium 9.0 Total Bilirubin 0.9 AST 28 Alkaline Phosphatase 154 H Total Protein 6.8 Albumin 3.6 Urine Color Urine Appearance Urine pH Ur Specific [place] Urine Protein Urine Glucose (UA) Urine Ketones Urine Blood Urine Nitrite Ur Leukocyte Esterase Urine WBC (Auto) Urine RBC (Auto) 01/12/20 01/12/20 01:05 03:10 WBC RBC Hgb Hct MCV MCH MCHC RDW Plt Count Seg Neutrophils % VBG pH 7.45 H VBG pCO2 26.9 L VBG HCO3 18.2 L VBG Base Excess -4.3 Sodium Potassium Chloride Carbon Dioxide Anion Gap BUN Creatinine Est GFR ( Amer) Glucose Lactic Acid Calcium Total Bilirubin AST Alkaline Phosphatase Total Protein Albumin Urine Color DARK YELLOW Urine Appearance CLOUDY Urine pH 5.0 Ur Specific [place] 1.015 Urine Protein 100 H Urine Glucose (UA) NEGATIVE Urine Ketones NEGATIVE Urine Blood SMALL H Urine Nitrite NEGATIVE Ur Leukocyte Esterase LARGE H Urine WBC (Auto) >182 Urine RBC (Auto) 11 01/12/20 01/12/20 00:15 00:15 Troponin I < 0.012 NT-Pro-B Natriuret Pep 5400 H EKG Comments: Paced Rhythm Impressions: Chest X-Ray 01/12/20 00:28 IMPRESSION: Cardiomegaly. No acute cardiopulmonary process copyright 2011 [employer]- All Rights Reserved Chest/Abdomen CTA 01/12/20 01:53 IMPRESSION: 1. No pulmonary embolus. 2. Cardiomegaly with coronary artery atherosclerosis. Minimal interstitial opacities and reflux of contrast into the hepatic veins. These findings could be seen with right heart dysfunction and mild interstitial pulmonary edema. 3. Small bilateral pleural effusions and bibasilar compressive atelectasis. 4. Prior median sternotomy with mild separation of the sternotomy fragments measuring 1.9 cm with increased number of sternotomy wire fractures. No definite soft tissue abnormalities along the median sternotomy. 5. Findings suggest chronic pancreatitis. 6. Mild mediastinal lymphadenopathy. This may be reactive or congestive. If the patient has history of neoplasm alexei metastatic disease could produce a similar appearance. This exam was performed according to our departmental dose-optimization program, which includes automated exposure control, adjustment of the mA and/or kV according to patient size and/or use of iterative reconstruction technique. Assessment and Plan - Diagnosis (1) Sepsis Qualifiers: Sepsis type: sepsis due to unspecified organism Sepsis acute organ dysfunction status: without acute organ dysfunction Qualified Code(s): A41.9 - Sepsis, unspecified organism Is this a current diagnosis for this admission?: Yes Plan: Patient presents with tachycardia, tachypnea, as well as source of infection of UTI. He has been afebrile and I believe he was mildly hypotensive on initial presentation. His kidney function is also compromised with a creatinine of 1.57 however the last one we have on file which was 0.8 was in 2018. His recent baseline is unclear (2) CAD (coronary artery disease) Qualifiers: Coronary Disease-Associated Artery/Lesion type: [place] artery Associated angina: without angina Is this a current diagnosis for this admission?: Yes Plan: Patient has underlying CAD however at this time he denies any chest pain or any other anginal equivalent symptoms. He is tachycardic but this likely is from his acute infection. Patient will be monitored on telemetry (3) AICD (automatic cardioverter/defibrillator) present Is this a current diagnosis for this admission?: Yes (4) UTI (urinary tract infection) Qualifiers: Urinary tract infection type: site unspecified Hematuria presence: without hematuria Qualified Code(s): N39.0 - Urinary tract infection, site not specif ied Is this a current diagnosis for this admission?: Yes Plan: We will continue with ceftriaxone and de-escalate or adjust according to the cul ture results - Plan Summary Summary: Patient is a full code as per my discussions with him - Time Time Spent with patient: 25-34 minutes Medications reviewed and adjusted accordingly: Yes Anticipated discharge: Home Within: within 72 hours - Inpatient Certification Based on my medical assessment, after consideration of the patient's comorbidities, presenting symptoms, or acuity I expect that the services needed warrant INPATIENT care.: Yes Medical Necessity: Need Close Monitoring Due to Risk of Patient Decompensation, Need for IV Antibiotics
--- NOTE | 2020-01-12 09:33 | EKG REPORT ---
SEVERITY:- ABNORMAL ECG - WIDE COMPLEX TACHYCARDIA IVCD, CONSIDER ATYPICAL LBBB INFERIOR INFARCT, ACUTE : Confirmed by: Al Mancia MD 12-Jan-2020 09:32:39
[2020-01-12] MEDS ORDERED: DOCUSATE SODIUM 100 MG CAPSULE PO SCH (10:00)
[2020-01-12] MEDS ORDERED: AMIODARONE HCL INJ 150 MG/3 ML VIAL IV ONE ×2 (11:00→11:01)
[2020-01-12] MEDS ORDERED: ENOXAPARIN SODIUM INJ 40 MG/0.4 ML DISP.SYRIN SUBCUT SCH (12:00)
--- NOTE | 2020-01-12 12:32 | PDOC CONSULTATION ---
Consultation Consult Date: 01/12/20 Attending physician:: PAULIE CARR Provider Consulted: KAREN BAXTER Consult reason:: Wide-complex tachycardia History of Present Illness Admission Date/PCP: 01/12/20 08:57 LILIA JOSEPH MD Patient complains of: Dyspnea History of Present Illness: KYUNG VASQUEZ SR is a 64 year old male With the following active problems 1. Coronary artery disease 2. Dilated ischemic cardiomyopathy 3. CABG 4. Left-sided dual-chamber [employer] ICD 5. Ventricular tachycardia status post VT ablation-[facility] 12/17/2019 6. Systemic hypertension 8. Dyslipidemia 9. Congestive heart failure-systolic 63-year-old male with problems as chronicled above presented to the emergency room with dyspnea and also complains of dysuria. His admitting diagnosis with UTI with sepsis. I was asked to evaluate the patient due to the presence of wide-complex tachycardia noted on EKG. Patient symptomatically felt different in the last 24 hours or so. Although it is hard to articulate his symptoms ex actly patient mentions dyspnea which is become worse although he attributes the majority of his symptoms to dysuria. Recent admission to [facility] for ventricular tachycardia ablation on 12/17/2019. At that time he was asked to report back to the hospital at the end of January for ICD pulse generator change out. Subsequent follow-up was also planned. No familial illnesses reported. Surgical history includes coronary artery bypass graft as well as dual-chamber ICD implantation which predates bypass surgery. Past Medical History Cardiac Medical History: Reports: Congestive Heart Failure, Coronary Artery Disease, Myocardial Infarction - x 8 Endocrine Medical History: Denies: Diabetes Mellitus Type 1, Diabetes Mellitus Type 2 Past Surgical History Past Surgical History: Reports: Cardiac Catheterization - bipass x4, Cholecystectomy - PACEMAKER/DEFIB, Other - Defibrillator/pacemaker. Social History Lives with: Family Smoking Status: Former Smoker Electronic Cigarette use?: No Frequency of Alcohol Use: Social Hx Recreational Drug Use: No - Advance Directive Resuscitation Status: Full Code Family History Family History: Reviewed & Not Pertinent Parental Family History Reviewed: Yes - No familial illnesses reported to me Children Family History Reviewed: NA Sibling(s) Family History Reviewed.: NA Medication/Allergy Home Medications: Aspirin [Ecotrin] 81 mg PO DAILY 09/25/18 Aripiprazole [Abilify] 5 mg PO DAILY 10/18/18 Furosemide [Lasix] 5 mg PO DAILY 10/18/18 Indomethacin [Indocin 25 mg Capsule] 25 mg PO PRN PRN 10/18/18 Melatonin [Melatonin 3 mg Tablet] 3 mg PO QHS 10/18/18 Tadalafil [Cialis] 10 mg PO DAILY 10/18/18 Allergies/Adverse Reactions: haloperidol [From Haldol] Allergy (Verified 10/18/18 15:56) adhesive tape Adverse Reaction (Verified 10/18/18 15:56) Review of Systems Constitutional: PRESENT: as per HPI Eyes: PRESENT: as per HPI Ears: PRESENT: as per HPI Cardiovascular: PRESENT: dyspnea on exertion, orthropnea Gastrointestinal: ABSENT: as per HPI, abdominal pain, bloating, coffee ground emesis, constipation, diarrhea, dysphagia, heartburn, hematemesis, hematochezia, melena, nausea, vomiting, other Genitourinary: PRESENT: dysuria Physical Exam Vital Signs: Temp Pulse Resp BP Pulse Ox 97.8 F 20 118/71 96 01/12/20 07:23 01/12/20 11:31 01/12/20 11:31 01/12/20 10:01 Intake & Output 01/11/20 01/12/20 01/13/20 05:59 06:59 06:59 Output Total 400 Balance -400 Weight General appearance: PRESENT: cooperative, mild distress, obese, well-developed Head exam: PRESENT: atraumatic, normocephalic Eye exam: PRESENT: conjunctiva pink, EOMI Teeth exam: PRESENT: poor dentation Respiratory exam: PRESENT: crackles, decreased breath sounds, symmetrical, tachypnea Cardiovascular exam: PRESENT: RRR, +S1, +S2, other - Left chest wall ICD implant site without edema, erythema or excoriation. Healed sternotomy scar noted. Pulses: PRESENT: normal radial pulses GI/Abdominal exam: PRESENT: soft Rectal exam: PRESENT: deferred Neurological exam: PRESENT: alert, awake, oriented to person, oriented to place, oriented to time, oriented to situation Psychiatric exam: PRESENT: appropriate affect Skin exam: PRESENT: dry, intact, normal color Results Laboratory Results: 01/12/20 00:15 01/12/20 00:15 01/12/20 01/12/20 01/12/20 00:15 00:15 00:15 WBC 11.6 H RBC 4.92 Hgb 15.4 Hct 45.6 MCV 93 MCH 31.3 MCHC 33.8 RDW 16.2 H Plt Count 166 Seg Neutrophils % 77.9 VBG pH VBG pCO2 VBG HCO3 VBG Base Excess Sodium 133.0 L Potassium 5.2 H Chloride 100 Carbon Dioxide 23 Anion Gap 10 BUN 19 Creatinine 1.50 H Est GFR ( Amer) 57 L Glucose 134 H Lactic Acid 1.4 Calcium 9.0 Total Bilirubin 0.9 AST 28 Alkaline Phosphatase 154 H Total Protein 6.8 Albumin 3.6 Urine Color Urine Appearance Urine pH Ur Specific [place] Urine Protein Urine Glucose (UA) Urine Ketones Urine Blood Urine Nitrite Ur Leukocyte Esterase Urine WBC (Auto) Urine RBC (Auto) 01/12/20 01/12/20 01:05 03:10 WBC RBC Hgb Hct MCV MCH MCHC RDW Plt Count Seg Neutrophils % VBG pH 7.45 H VBG pCO2 26.9 L VBG HCO3 18.2 L VBG Base Excess -4.3 Sodium Potassium Chloride Carbon Dioxide Anion Gap BUN Creatinine Est GFR ( Amer) Glucose Lactic Acid Calcium Total Bilirubin AST Alkaline Phosphatase Total Protein Albumin Urine Color DARK YELLOW Urine Appearance CLOUDY Urine pH 5.0 Ur Specific [place] 1.015 Urine Protein 100 H Urine Glucose (UA) NEGATIVE Urine Ketones NEGATIVE Urine Blood SMALL H Urine Nitrite NEGATIVE Ur Leukocyte Esterase LARGE H Urine WBC (Auto) >182 Urine RBC (Auto) 11 01/12/20 01/12/20 01/12/20 00:15 00:15 09:53 Troponin I < 0.012 < 0.012 NT-Pro-B Natriuret Pep 5400 H EKG Comments: Twelve-lead EKG 01/12/2020 095 4 AM Wide-complex tachycardia likely ventricular tachycardia 111 bpm. Left bundle left axis Twelve-lead EKG 01/12/2020 11:26 AM Sinus rhythm, 75 bpm, nonspecific IVCD, QTC is 505 ms [employer] dual-chamber ICD interrogation at presentation showed sinus rhythm with underlying ventricular tachycardia with a cycle length of 518 to 520 ms. Ventricular tachycardia was pace terminated with 350 ms burst 25 pulses. Initi al attempts to burst terminate at about 450 ms were unsuccessful. Impressions: Chest X-Ray 01/12/20 00:28 IMPRESSION: Cardiomegaly. No acute cardiopulmonary process copyright 2011 [employer]- All Rights Reserved Chest/Abdomen CTA 01/12/20 01:53 IMPRESSION: 1. No pulmonary embolus. 2. Cardiomegaly with coronary artery atherosclerosis. Minimal interstitial opacities and reflux of contrast into the hepatic veins. These findings could be seen with right heart dysfunction and mild interstitial pulmonary edema. 3. Small bilateral pleural effusions and bibasilar compressive atelectasis. 4. Prior median sternotomy with mild separation of the sternotomy fragments measuring 1.9 cm with increased number of sternotomy wire fractures. No definite soft tissue abnormalities along the median sternotomy. 5. Findings suggest chronic pancreatitis. 6. Mild mediastinal lymphadenopathy. This may be reactive or congestive. If the patient has history of neoplasm alexei metastatic disease could produce a similar appearance. This exam was performed according to our departmental dose-optimization program, which includes automated exposure control, adjustment of the mA and/or kV according to patient size and/or use of iterative reconstruction technique. Assessment & Plan - Diagnosis (1) Ventricular tachycardia Is this a current diagnosis for this admission?: Yes Plan: Monomorphic ventricular tachycardia at a cycle length of 520 ms Hemodynamically stable and mentating well. Bedside programmed electrical stimulation was performed with burst pacing initially at 450 ms which was unsuccessful after multiple attempts. Subsequently burst pacing at 350 ms for about 25 pulses resulted in termination of ventricular tachycardia with resumption of sinus rhythm. Patient tolerated this well. Intravenous amiodarone bolus and maintenance infusion was started due to present ation with ventricular tachycardia Patient is recently status post ventricular tachycardia ablation We will initiate mexiletine 200 mg 3 times daily in addition to oral amiodarone maintenance dose Given the fact that patient ICD has tripped OPAL on 12/22/2019 he should be evaluated for urgent pulse generator change out given ongoing ventricular arrhythmia episodes. (2) AICD (automatic cardioverter/defibrillator) present Is this a current diagnosis for this admission?: Yes Plan: Device with normal function. Slow ventricular tachycardia. Programmed electrical stimulation was performed with burst pacing in the ventricle at 350 ms which resulted in termination of ventricular tachycardia No programming changes made to the device due to the slow nature of the ventricular tachycardia. Escalation of medical therapy with inclusion of mexiletine and oral amiodarone as well as initiation of intravenous amiodarone infusion for the next 24 hours or more to ensure electrical stability Given the nature of the presenting problem and with planned outpatient follow-up to evaluate the patient for device pulse generator change out it would be reasonable to transfer him to the original institution where pulse energy change out can be performed in a more urgent fashion given his presentation with ventricular tachycardia. I have spoken with the admitting physician and also with the referring hospital [facility] to facilitate this. The patient also understands and acknowledges the above plan with the need to proceed with positive change out. He is going to need continued observation for electrical stability while continuing his intravenous amiodarone load. (3) CAD (coronary artery disease) Qualifiers: Coronary Disease-Associated Artery/Lesion type: [place] artery Associated angina: without angina Is this a current diagnosis for this admission?: Yes Plan: Status post CABG No ischemic symptoms on today's visit Continue guideline directed therapy for coronary artery disease Beta-blockade is absolutely essential - Notes Notes: Monomorphic ventricular tachycardia status post termination by programmed external stimulation Initiation of intravenous amiodarone bolus and maintenance Anticipate transfer to tertiary facility for urgent also need to change out given the fact the device is tripped OPAL on 12/22/2019
[2020-01-12] MEDS ORDERED: DEXTROSE 5%-WATER 500 ML with AMIODARONE HCL 900 MG IV PRN ×2 (12:35)
[2020-01-12] MEDS ORDERED: AMIODARONE HCL 150 MG in DEXTROSE 5%-WATER 100 ML IV ONE (13:00)
--- NOTE | 2020-01-12 13:28 | PDOC DISCHARGE SUMMARY ---
Impression - Admit/DC Date/PCP Admission Date/Primary Care Provider: 01/12/20 08:57 LILIA JOSEPH MD Discharge Date: 01/12/20 - Discharge Diagnosis (1) Sepsis Is this a current diagnosis for this admission?: Yes (2) CAD (coronary artery disease) Is this a current diagnosis for this admission?: Yes (3) AICD (automatic cardioverter/defibrillator) present Is this a current diagnosis for this admission?: Yes (4) UTI (urinary tract infection) Is this a current diagnosis for this admission?: Yes (5) Ventricular tachycardia Is this a current diagnosis for this admission?: Yes - Assessment Summary: Patient is a full code as per my discussions with him - Additional Information Resuscitation Status: Full Code Discharge Diet: Cardiac Discharge Activity: Bedrest Referrals: LILIA JOSEPH MD [Primary Care Provider] - Follow up as needed Home Medications: Aspirin [Ecotrin] 81 mg PO DAILY 09/25/18 Aripiprazole [Abilify] 5 mg PO DAILY 10/18/18 Furosemide [Lasix] 5 mg PO DAILY 10/18/18 Indomethacin [Indocin 25 mg Capsule] 25 mg PO PRN PRN 10/18/18 Melatonin [Melatonin 3 mg Tablet] 3 mg PO QHS 10/18/18 Tadalafil [Cialis] 10 mg PO DAILY 10/18/18 History of Present Illiness History of Present Illness: KYUNG VASQUEZ SR is a 64 year old male In the ER patient was found to be tachycardic, tachypneic as well as hypotensive but denies any chest pain. Further evaluation reveals a urinary tract infection. Patient denies any chest pain. He does have a significant cardiac history including coronary artery disease and a recent ablation procedure at [facility] on December 17 of this year. He says he is scheduled for another ablation at the end of this month. He has a pacemaker as well as defibrillator. CT scan of the chest done reveals cardiomegaly with coronary artery atherosclerosis Hospital Course Hospital Course: Patient was seen in the emergency room earlier today with UTI and sepsis. He was noted to have wide-complex tachycardia on EKG. As such a cardiology consult was obtained. Please refer to cardiology consultation for full details. After evaluation by cardiology patient was confirmed to be in ventricular tachycardia. He just had an ablation done on December 17 and he was supposed to report back at the end of January for ICD pulse generator change out. His ICD was interrogated and patient was found to have an underlying ventricular tachycardia which was ultimately paced terminated by the core inspector. Dr. Malik performed a programmed electrical stimulation with burst pacing. Due to this patient's complex medical issue and need for device pulse generator change it is felt that patient should be transferred to a tertiary care center, preferably [facility] can be performed in a more urgent fashion given his presentation with ventricular tachycardia. Both Dr. Malik and I spoke with the core inspector fellow at [facility]. They have accepted this patient although he will be going to the ED from where he will be evaluated by cardiology. I talked to Dr Bundy, the apprentice photographer. Dr. Gianna Pino will be the accepting physician Patient had monomorphic ventricular tachycardia status post termination by programmed external stimulation. He was also started on intravenous amiodarone bolus and maintenance and will be started on mexiletine as suggested by [facility] cardiology Physical Exam Vital Signs: Temp Pulse Resp BP Pulse Ox 98 F 17 114/84 96 01/12/20 11:00 01/12/20 13:01 01/12/20 13:01 01/12/20 13:01 Intake & Output 01/11/20 01/12/20 01/13/20 05:59 06:59 06:59 Output Total 400 Balance -400 Weight General appearance: PRESENT: no acute distress, cooperative Head exam: PRESENT: atraumatic Neck exam: PRESENT: full ROM. ABSENT: JVD, tenderness Respiratory exam: PRESENT: clear to auscultation reymundo, tachypnea Cardiovascular exam: PRESENT: RRR, +S1, +S2 GI/Abdominal exam: PRESENT: normal bowel sounds Rectal exam: PRESENT: deferred Neurological exam: PRESENT: alert, awake, oriented to person, oriented to place, oriented to time, oriented to situation Psychiatric exam: PRESENT: appropriate affect Results Laboratory Results: WBC 11.6 10^3/uL (4.0-10.5) H 01/12/20 00:15 RBC 4.92 10^6/uL (4.35-5.55) 01/12/20 00:15 Hgb 15.4 g/dL (13.5-17.0) 01/12/20 00:15 Hct 45.6 % (37.9-51.0) 03/08/20 00:15 MCV 93 fl (80-97) 01/12/20 00:15 MCH 31.3 pg (27.0-33.4) 01/12/20 00:15 MCHC 33.8 g/dL (32.0-36.0) 01/12/20 00:15 RDW 16.2 % (11.5-14.0) H 01/12/20 00:15 Plt Count 166 10^3/uL (150-450) 01/12/20 00:15 Lymph % (Auto) 16.5 % (13-45) 01/12/20 00:15 Mcintosh % (Auto) 4.9 % (3-13) 01/12/20 00:15 Eos % (Auto) 0.4 % (0-6) 01/12/20 00:15 Baso % (Auto) 0.3 % (0-2) 01/12/20 00:15 Absolute Neuts (auto) 9.1 10^3/uL (1.7-8.2) H 01/12/20 00:15 Absolute Lymphs (auto) 1.9 10^3/uL (0.5-4.7) 01/12/20 00:15 Absolute Monos (auto) 0.6 10^3/uL (0.1-1.4) 01/12/20 00:15 Absolute Eos (auto) 0.0 10^3/uL (0.0-0.6) 01/12/20 00:15 Absolute Basos (auto) 0.0 10^3/uL (0.0-0.2) 01/12/20 00:15 Seg Neutrophils % 77.9 % (42-78) 01/12/20 00:15 D-Dimer 1.20 ug/mL (0.00-0.50) H 01/12/20 00:15 VBG pH 7.45 (7.30-7.42) H 01/12/20 03:10 VBG pCO2 26.9 mmHg (35-63) L 01/12/20 03:10 VBG HCO3 18.2 mmol/L (20-32) L 01/12/20 03:10 VBG Base Excess -4.3 mmol/L 01/12/20 03:10 Sodium 133.0 mmol/L (137-145) L 01/12/20 00:15 Potassium 5.2 mmol/L (3.6-5.0) H 01/12/20 00:15 Chloride 100 mmol/L (98-107) 01/12/20 00:15 Carbon Dioxide 23 mmol/L (22-30) 01/12/20 00:15 Anion Gap 10 (5-19) 01/12/20 00:15 BUN 19 mg/dL (7-20) 01/12/20 00:15 Creatinine 1.50 mg/dL (0.52-1.25) H 01/12/20 00:15 Est GFR ( Amer) 57 (>60) L 01/12/20 00:15 Est GFR (MDRD) Non-Af 47 (>60) L 01/12/20 00:15 Glucose 134 mg/dL (75-110) H 01/12/20 00:15 Lactic Acid 1.4 mmol/L (0.7-2.1) 01/12/20 00:15 Calcium 9.0 mg/dL (8.4-10.2) 01/12/20 00:15 Total Bilirubin 0.9 mg/dL (0.2-1.3) 01/12/20 00:15 Direct Bilirubin 0.2 mg/dL (0.0-0.4) 01/12/20 00:15 Neonat Total Bilirubin Not Reportable 01/12/20 00:15 Neonat Direct Bilirubin Not Reportable 01/12/20 00:15 Neonat Indirect Bili Not Reportable 01/12/20 00:15 AST 28 U/L (17-59) 01/12/20 00:15 ALT 40 U/L (<50) 01/12/20 00:15 Alkaline Phosphatase 154 U/L (38-126) H 01/12/20 00:15 Troponin I < 0.012 ng/mL 01/12/20 09:53 NT-Pro-B Natriuret Pep 5400 pg/mL (<125) H 01/12/20 00:15 Total Protein 6.8 g/dL (6.3-8.2) 01/12/20 00:15 Albumin 3.6 g/dL (3.5-5.0) 01/12/20 00:15 Urine Color DARK YELLOW 01/12/20 01:05 Urine Appearance CLOUDY 01/12/20 01:05 Urine pH 5.0 (5.0-9.0) 01/12/20 01:05 Ur Specific [place] 1.015 01/12/20 01:05 Urine Protein 100 mg/dL (NEGATIVE) H 01/12/20 01:05 Urine Glucose (UA) NEGATIVE mg/dL (NEGATIVE) 01/12/20 01:05 Urine Ketones NEGATIVE mg/dL (NEGATIVE) 01/12/20 01:05 Urine Blood SMALL (NEGATIVE) H 01/12/20 01:05 Urine Nitrite NEGATIVE (NEGATIVE) 01/12/20 01:05 Urine Bilirubin NEGATIVE (NEGATIVE) 01/12/20 01:05 Urine Urobilinogen NEGATIVE mg/dL (<2.0) 01/12/20 01:05 Ur Leukocyte Esterase LARGE (NEGATIVE) H 01/12/20 01:05 Urine WBC (Auto) >182 /HPF 01/12/20 01:05 Urine RBC (Auto) 11 /HPF 01/12/20 01:05 Urine WBC Clumps MANY /HPF 01/12/20 01:05 U Non-Squamous Epis Auto 2 /HPF 01/12/20 01:05 Urine Mucus (Auto) RARE /LPF 01/12/20 01:05 Urine Ascorbic Acid NEGATIVE (NEGATIVE) 01/12/20 01:05 01/12/20 01/12/20 01/12/20 00:15 00:15 09:53 Troponin I < 0.012 < 0.012 NT-Pro-B Natriuret Pep 5400 H EKG Comments: Wide complex tachycardia Impressions: Chest X-Ray 01/12/20 00:28 IMPRESSION: Cardiomegaly. No acute cardiopulmonary process copyright 2011 [employer]- All Rights Reserved Chest/Abdomen CTA 01/12/20 01:53 IMPRESSION: 1. No pulmonary embolus. 2. Cardiomegaly with coronary artery atherosclerosis. Minimal interstitial opacities and reflux of contrast into the hepatic veins. These findings could be seen with right heart dysfunction and mild interstitial pulmonary edema. 3. Small bilateral pleural effusions and bibasilar compressive atelectasis. 4. Prior median sternotomy with mild separation of the sternotomy fragments measuring 1.9 cm with increased number of sternotomy wire fractures. No definite soft tissue abnormalities along the median sternotomy. 5. Findings suggest chronic pancreatitis. 6. Mild mediastinal lymphadenopathy. This may be reactive or congestive. If the patient has history of neoplasm alexei metastatic disease could produce a similar appearance. This exam was performed according to our departmental dose-optimization program, which includes automated exposure control, adjustment of the mA and/or kV according to patient size and/or use of iterative reconstruction technique. Plan Health Concerns: Spoke to [facility] for further evaluation and management Time Spent: Greater than 30 Minutes Stroke Is this a Stroke Patient?: No Acute Heart Failure - Is this a Heart Failure Patient?: No
--- NOTE | 2020-01-12 13:32 | PDOC TRANSFER SUMMARY ---
General Admission Date/PCP: 01/12/20 08:57 LILIA JOSEPH MD Transfer Date: 01/12/20 Accepting Facility: [facility] Accepting Physician: Dr. Gianna Pino Resuscitation Status: Full Code - Transfer Diagnosis (1) Sepsis Is this a current diagnosis for this admission?: Yes (2) CAD (coronary artery disease) Is this a current diagnosis for this admission?: Yes (3) AICD (automatic cardioverter/defibrillator) present Is this a current diagnosis for this admission?: Yes (4) UTI (urinary tract infection) Is this a current diagnosis for this admission?: Yes (5) Ventricular tachycardia Is this a current diagnosis for this admission?: Yes - Transfer Medications Home Medications: Aspirin [Ecotrin] 81 mg PO DAILY 09/25/18 Aripiprazole [Abilify] 5 mg PO DAILY 10/18/18 Furosemide [Lasix] 5 mg PO DAILY 10/18/18 Indomethacin [Indocin 25 mg Capsule] 25 mg PO PRN PRN 10/18/18 Melatonin [Melatonin 3 mg Tablet] 3 mg PO QHS 10/18/18 Tadalafil [Cialis] 10 mg PO DAILY 10/18/18 Transfer Medications: Current Medications Acetaminophen (Tylenol 325 Mg Tablet) 650 mg PO Q4HP PRN PRN Reason: FOR PAIN SCALE 1-3 Stop: 02/11/20 08:17 Albuterol/Ipratropium (Duoneb 3 Ml Ampul) 3 ml NEB RTQ6HP PRN PRN Reason: SHORTNESS OF BREATH Stop: 02/11/20 08:17 Docusate Sodium (Colace 100 Mg Capsule) 100 mg PO DAILY [facility] Stop: 02/11/20 09:59 Last Admin: 01/12/20 12:24 Dose: Not Given Documented by: Enoxaparin Sodium (Lovenox Inj 40 Mg/0.4 Ml Disp.Syrin) 40 mg SUBCUT DAILY [facility] Stop: 02/11/20 11:59 Ceftriaxone Sodium/Dextrose (Rocephin Rtu 2 Gm/D5w 50 Ml Premix Bag) 2 gm in 50 mls @ 100 mls/hr IV DAILY SILVIANO Stop: 01/20/20 09:59 Amiodarone HCl 900 mg/ (Dextrose) 500 mls @ 0 mls/hr IV CONTINUOUS PRN; Protocol PRN Reason: THIS MED IS NOT "PRN" Stop: 01/15/20 12:34 Mexiletine HCl (Mexitil 200 Mg Capsule) 200 mg PO NOW ONE Stop: 01/12/20 13:23 Ondansetron HCl (Zofran Odt 4 Mg Tablet) 4 mg PO Q4HP PRN PRN Reason: FOR NAUSEA/VOMITING Stop: 02/11/20 08:17 Oxycodone/Acetaminophen (Percocet 5-325 Mg Tablet) 1 tab PO Q6HP PRN PRN Reason: FOR PAIN SCALE 4-5 Stop: 01/19/20 08:17 Pantoprazole Sodium (Protonix [address] Tablet) 20 mg PO Q6AM SILVIANO Stop: 02/12/20 05:59 - Allergies Allergies/Adverse Reactions: haloperidol [From Haldol] Allergy (Verified 10/18/18 15:56) adhesive tape Adverse Reaction (Verified 10/18/18 15:56) - Diet/Activity Discharge Diet: Cardiac Discharge Activity: Bedrest Hospital Course Hospital Course: Hospital Course: Patient was seen in the emergency room earlier today with UTI and sepsis. He was noted to have wide-complex tachycardia on EKG. As such a cardiology consult was obtained. Please refer to cardiology consultation for full details. After evaluation by cardiology patient was confirmed to be in ventricular tachycardia. He just had an ablation done on December 17 and he was supposed to report back at the end of January for ICD pulse generator change out. His ICD was interrogated and patient was found to have an underlying ventricular tachycardia which was ultimately paced terminated by the lpn per diem. Dr. Malik performed a programmed electrical stimulation with burst pacing. Due to this patient's complex medical issue and need for device pulse generator change it is felt that patient should be transferred to a tertiary care center, preferably [facility] can be performed in a more urgent fashion given his presentation with ventricular tachycardia. Both Dr. Malik and I spoke with the lpn per diem fellow at [facility]. They have accepted this patient although he will be going to the ED from where he will be evaluated by cardiology. I talked to Dr Bundy, the testing consultant. Dr. Gianna Pino will be the accepting physician Patient had monomorphic ventricular tachycardia status post termination by programmed external stimulation. He was also started on intravenous amiodarone bolus and maintenance and will be started on mexiletine as suggested by [facility] cardiology Physical Exam Vital Signs: Temp Pulse Resp BP Pulse Ox 98 F 17 114/84 96 01/12/20 11:00 01/12/20 13:01 01/12/20 13:01 01/12/20 13:01 Intake & Output 01/11/20 01/12/20 01/13/20 05:59 06:59 06:59 Output Total 400 Balance -400 Weight General appearance: PRESENT: no acute distress Respiratory exam: PRESENT: clear to auscultation reymundo Cardiovascular exam: PRESENT: RRR, +S1, +S2 GI/Abdominal exam: PRESENT: soft. ABSENT: tenderness Rectal exam: PRESENT: deferred Extremities exam: PRESENT: +1 edema. ABSENT: calf tenderness Neurological exam: PRESENT: alert, awake, oriented to person, oriented to place, oriented to time, oriented to situation Results Laboratory Results: 01/12/20 00:15 01/12/20 00:15 01/12/20 01/12/20 01/12/20 00:15 00:15 00:15 WBC 11.6 H RBC 4.92 Hgb 15.4 Hct 45.6 MCV 93 MCH 31.3 MCHC 33.8 RDW 16.2 H Plt Count 166 Seg Neutrophils % 77.9 VBG pH VBG pCO2 VBG HCO3 VBG Base Excess Sodium 133.0 L Potassium 5.2 H Chloride 100 Carbon Dioxide 23 Anion Gap 10 BUN 19 Creatinine 1.50 H Est GFR ( Amer) 57 L Glucose 134 H Lactic Acid 1.4 Calcium 9.0 Total Bilirubin 0.9 AST 28 Alkaline Phosphatase 154 H Total Protein 6.8 Albumin 3.6 Urine Color Urine Appearance Urine pH Ur Specific [place]alie Urine Protein Urine Glucose (UA) Urine Ketones Urine Blood Urine Nitrite Ur Leukocyte Esterase Urine WBC (Auto) Urine RBC (Auto) 01/12/20 01/12/20 01:05 03:10 WBC RBC Hgb Hct MCV MCH MCHC RDW Plt Count Seg Neutrophils % VBG pH 7.45 H VBG pCO2 26.9 L VBG HCO3 18.2 L VBG Base Excess -4.3 Sodium Potassium Chloride Carbon Dioxide Anion Gap BUN Creatinine Est GFR ( Amer) Glucose Lactic Acid Calcium Total Bilirubin AST Alkaline Phosphatase Total Protein Albumin Urine Color DARK YELLOW Urine Appearance CLOUDY Urine pH 5.0 Ur Specific [place] 1.015 Urine Protein 100 H Urine Glucose (UA) NEGATIVE Urine Ketones NEGATIVE Urine Blood SMALL H Urine Nitrite NEGATIVE Ur Leukocyte Esterase LARGE H Urine WBC (Auto) >182 Urine RBC (Auto) 11 01/12/20 01/12/20 01/12/20 00:15 00:15 09:53 Troponin I < 0.012 < 0.012 NT-Pro-B Natriuret Pep 5400 H EKG Comments: Wide complex Tachycardia Impressions: Chest X-Ray 01/12/20 00:28 IMPRESSION: Cardiomegaly. No acute cardiopulmonary process copyright 2011 [employer]- All Rights Reserved Chest/Abdomen CTA 01/12/20 01:53 IMPRESSION: 1. No pulmonary embolus. 2. Cardiomegaly with coronary artery atherosclerosis. Minimal interstitial opacities and reflux of contrast into the hepatic veins. These findings could be seen with right heart dysfunction and mild interstitial pulmonary edema. 3. Small bilateral pleural effusions and bibasilar compressive atelectasis. 4. Prior median sternotomy with mild separation of the sternotomy fragments measuring 1.9 cm with increased number of sternotomy wire fractures. No definite soft tissue abnormalities along the median sternotomy. 5. Findings suggest chronic pancreatitis. 6. Mild mediastinal lymphadenopathy. This may be reactive or congestive. If the patient has history of neoplasm alexei metastatic disease could produce a similar appearance. This exam was performed according to our departmental dose-optimization program, which includes automated exposure control, adjustment of the mA and/or kV according to patient size and/or use of iterative reconstruction technique. Plan Discharge Plan: Transfer to [facility] Time Spent: Greater than 30 Minutes
--- NOTE | 2020-01-12 13:35 | Progress Note ---
Provider Note Provider Note: Patient daughter was very upset that patient was being transferred to [facility]. She physically will not allow me to explain all to her was going on. She was yelling on the phone saying that they were told by the ED physician that patient had fluid around her heart and this was not being addressed. I tried to explain to her the rationale and the reason for transferring Mr. wade it however patient daughter will not listening. She said she will have his call me which she did. I did manage to explain to the why patient was being transferred. I explained about the potentially fatal arrhythmia, the pulse generator of the AICD that needs to be changed and the fact that patient was in V. tach which was difficult to shock him out of when he presented to the ED. She voiced understanding after I explained to her and she has agreed with the transfer. Patient himself is awake alert oriented x3 and able to make his own decisions. He consented to the transfer and the ED charge nurse as well as the RN went back to talk to him and he agrees to consent to being transferred to [facility]. Patient will be transferred as per previous plan.
[2020-01-12 13:47] VITALS: BP 113/65
[2020-01-12] MEDS ORDERED: MEXILETINE HCL 200 MG CAPSULE PO ONE (14:00)
--- NOTE | 2020-01-12 16:19 | EKG REPORT ---
SEVERITY:- ABNORMAL ECG - SINUS RHYTHM NONSPECIFIC INTRAVENTRICULAR CONDUCTION DELAY MINIMAL ST DEPRESSION, LATERAL LEADS AGE UNDETERMINED INFERIOR MO. IVCD, LA ABNORMALITY. : Confirmed by: Al Mancia MD 12-Jan-2020 16:18:55
--- NOTE | 2020-01-12 16:19 | EKG REPORT ---
SEVERITY:- ABNORMAL ECG - SINUS TACHYCARDIA IVCD, CONSIDER ATYPICAL LBBB INFERIOR INFARCT, ACUTE : Confirmed by: Al Mancia MD 12-Jan-2020 16:19:35
[2020-01-13] MEDS ORDERED: PANTOPRAZOLE SODIUM 20 MG TABLET.DR PO SCH (06:00)
[2020-01-13] MEDS ORDERED: CEFTRIAXONE 2 GM/D5W RTU 2 GM/50 ML RTUPB IV SCH (10:00)
== END 2020-01-12 14:00 | disposition short-term general hospital (02) | DRG 872 ==
LOC: ER 00:10 → EH 08:57
PROVIDERS: ADMIT Internal Medicine; ATTEND Internal Medicine
DX: A41.9 Sepsis, unspecified organism (principal); N39.0 Urinary tract infection, site not specified; I47.2 Ventricular tachycardia; I42.0 Dilated cardiomyopathy; I50.20 Unspecified systolic (congestive) heart failure; I11.0 Hypertensive heart disease with heart failure; I25.10 Atherosclerotic heart disease of native coronary artery without angina pectoris; E78.5 Hyperlipidemia, unspecified; E66.9 Obesity, unspecified; I25.2 Old myocardial infarction; Z95.810 Presence of automatic (implantable) cardiac defibrillator; Z79.82 Long term (current) use of aspirin; Z95.0 Presence of cardiac pacemaker; Z95.1 Presence of aortocoronary bypass graft; Z87.891 Personal history of nicotine dependence; Z88.8 Allergy status to other drugs, medicaments and biological substances; Z91.048 Other nonmedicinal substance allergy status
CPT/HCPCS: 36415; 71045; 71275; 80053; 81001; 82803; 83605; 83880; 84484; 85025; 85379; 87040; 93005; 93010; 96365; 99285; J0282; J0696; J7060